=== PATIENT | female | born 1970 | race Caucasian/White ===

== ENCOUNTER → 2019-09-12 | Outpatient (CLI) | payer OTHER ==
[~2019-09-12] MED LIST: ALBU90OI INH; BUSP5; CARB50 PO; CITA20; OXYACE5T PO; PRED20 PO; PROACE100 PO; RXPROACE PO
[2019-09-13 06:31] LABS: Candida species (DNA Probe) Negative (NEGATIVE); G. vaginalis (DNA Probe) Negative (NEGATIVE); T. vaginalis (DNA Probe) Negative (NEGATIVE)
== END ==
LOC: LAB 15:18 → LAB SHORT 15:18
PROVIDERS: Nurse Practitioner Family
DX: L29.2 Pruritus vulvae (principal); R30.0 Dysuria
CPT/HCPCS: 87077; 87086; 87186; 87480; 87510; 87660

== ENCOUNTER → 2019-11-09 | Outpatient (CLI) | payer OTHER ==
[2019-11-09 17:07] LABS: Influenza A Negative (NEGATIVE); Influenza B Negative (NEGATIVE)
== END ==
LOC: LAB 15:32 → LAB SHORT 15:32
PROVIDERS: Family Medicine
DX: R05 Cough (principal)
CPT/HCPCS: 87804

== ENCOUNTER → 2020-02-03 | Outpatient (CLI) | payer OTHER | END | disposition home or self-care (01) | LOC: LAB 15:31 → LAB SHORT 15:31 | DX: R30.0 Dysuria (principal); R10.9 Unspecified abdominal pain | CPT/HCPCS: 87086 ==

== ENCOUNTER 2020-07-07 14:42 | Emergency (ER) | payer OTHER ==
[~2020-07-07] VITALS: Ht 160 cm; Wt 90.7 kg
[~2020-07-07 14:42] MED LIST changes: +FLUT.05NI; +Loratadine10 MG PO; +PANT40 PO; +TRAZ50 PO
[2020-07-07] MEDS ORDERED: PRED20 PO (15:44)
[2020-07-07] MEDS ORDERED: FLUT1DIS2 INH (15:44)
== END 2020-07-07 15:59 | disposition home or self-care (01) ==
LOC: ER 14:42
DX: U07.1 COVID-19 (principal); R06.02 Shortness of breath; R05 Cough; R09.81 Nasal congestion; J45.909 Unspecified asthma, uncomplicated; F32.9 Major depressive disorder, single episode, unspecified; F41.9 Anxiety disorder, unspecified; Z88.2 Allergy status to sulfonamides; Z88.8 Allergy status to other drugs, medicaments and biological substances; Z79.899 Other long term (current) drug therapy
CPT/HCPCS: 99284

== ENCOUNTER 2021-03-07 10:09 | Day surgery (SDC) | payer OTHER ==
[~2021-03-07] VITALS: Ht 160 cm; Wt 88.8 kg
[~2021-03-07 10:09] MED LIST changes: +FLUT1DIS2 INH
[2021-03-07] MEDS ORDERED: ATOM18 (10:31)
--- NOTE | 2021-03-07 10:54 | NUR ---
03/07/[address] NOTIFIED OF [id number], NO ORDERS AT THIS TIME.
== END 2021-03-07 12:05 | disposition home or self-care (01) ==
LOC: ORSCSDS 10:09
PROVIDERS: Student in an Organized Health Care Education/Training Program
PROC: 0DBM8ZX Excision of Descending Colon, Via Natural or Artificial Opening Endoscopic, Diagnostic (ICD-10-PCS; principal; 2021-03-07 11:15)
DX: Z12.11 Encounter for screening for malignant neoplasm of colon (principal); D12.4 Benign neoplasm of descending colon; Z83.71 Family history of colonic polyps; K64.4 Residual hemorrhoidal skin tags; E66.9 Obesity, unspecified; Z68.36 Body mass index [BMI] 36.0-36.9, adult; Z79.899 Other long term (current) drug therapy
CPT/HCPCS: 88305; J2704; J7120

== ENCOUNTER → 2022-01-30 | Outpatient (CLI) | payer OTHER ==
[~2022-01-30] MED LIST changes: +ATOM18
== END | disposition home or self-care (01) ==
LOC: LAB SHORT 17:11 → LAB 17:11
PROVIDERS: Obstetrics & Gynecology
DX: Z12.72 Encounter for screening for malignant neoplasm of vagina (principal)
CPT/HCPCS: G0123